=== PATIENT | male | born 1985 | race Caucasian/White ===

== ENCOUNTER 2020-01-31 10:20 | Inpatient (IN) ==
[2020-01-31 10:49] LABS: Basophils # 0.1 K/mcL (0.0-0.2); Basophils % 0.7 %; Eosinophils # 0.2 K/mcL (0.0-0.6); Eosinophils % 1.7 %; Estimated Average Glucose 126 mg/dl; Hematocrit 47.4 % (37.5-50.1); Hemoglobin 16.4 g/dL (12.9-16.9); Immature Granulocytes % 0.4 % (0-4); Lymphocytes # 2.2 K/mcL (0.6-4.6); Lymphocytes % 24.1 %; Mean Corpuscular HGB Conc 34.6 g/dL (31.6-35.5); Mean Corpuscular Hemoglobin 29.4 pg (28.0-33.3); Mean Corpuscular Volume 84.9 fL (83.0-100.0); Mean Platelet Volume 9.3 fL (9.4-12.4); Monocytes # 0.8 K/mcL (0.0-1.3); Monocytes % 8.5 %; Neutrophils # 5.9 K/mcL (1.6-8.9); Platelet Count 279 K/mcL (140-400); Red Blood Count 5.58 M/mcL (4.19-5.50); Red Cell Distribution Width 12.5 % (11.5-14.5); Segmented Neutrophils % 64.6 %; White Blood Count 9.2 K/mcL (4.3-11.1)
[2020-01-31 10:56] LABS: Bilirubin,Urine Negative (Negative); Blood,Urine Negative (Negative); Clarity,Urine Clear (Clear); Color,Urine Light-Yellow (Yellow); Glucose,Urine (UA) 150 mg/dL (Normal); Ketones,Urine 40 mg/dL (Negative); Leukocyte Esterase,Urine Negative (Negative); Mucus,Urine Few per lpf (None-Few); Nitrite,Urine Negative (Negative); Protein,Urine Trace mg/dL (Neg-Trace); RBC,Urine 0-3 per hpf (0-3); Specific Gravity,Urine 1.028 (1.010-1.025); Urobilinogen,Urine Normal (Normal); WBC,Urine 0-3 per hpf (0-3)
[2020-01-31 11:08] LABS: Acetaminophen < 10 mcg/mL (10-20); BUN/Creatinine Ratio 12 (6-26); Blood Urea Nitrogen 13 mg/dL (6-20); Calcium 9.2 mg/dL (8.6-10.3); Carbon Dioxide 28 mEq/L (23-29); Chloride 102 mEq/L (98-107); Chol/HDL Ratio 5.4 (0-4.9); Cholesterol 212 mg/dL (< 200); Ethanol < 10 mg/dL (Less than 10); Glucose 104 mg/dL (70-105); HDL Cholesterol 39 mg/dL (40-59); LDL Cholesterol,Calculated 148 mg/dL (< 100); Osmolality,Calculated 284 (280-300); Potassium 3.6 mEq/L (3.5-5.1); Salicylate < 2.5 mg/dL (15.0-30.0); Sodium 137 mEq/L (136-145); Triglycerides 124 mg/dL (< 150); eGFR For African Americans > 60 (> 60); eGFR For Non-African Americans > 60 (> 60)
[2020-01-31 11:21] LABS: Amphetamine Screen,Urine Negative ng/mL (Cutoff=1000); Barbiturate Screen,Urine Negative ng/mL (Cutoff=200); Benzodiazepines Screen,Urine Positive ng/mL (Cutoff=200); Cannabinoid Screen,Urine Positive ng/mL (Cutoff = 50); Cocaine Screen,Urine Negative ng/mL (Cutoff= 300); Opiate Screen,Urine Negative ng/mL (Cutoff=300); Phencyclidine Screen,Urine Negative ng/mL (Cutoff=25)
[2020-01-31] MEDS ORDERED: *HR* LORazepam 2 MG/ML VIAL IM PRN (12:22)
[2020-01-31] MEDS ORDERED: *HR* LORazepam 1 MG TABLET PO PRN (12:22)
[2020-01-31] MEDS ORDERED: haloperidoL 5 MG TABLET PO PRN (12:22)
[2020-01-31] MEDS ORDERED: Haloperidol Lactate 5 MG/ML VIAL IM PRN (12:22)
[2020-01-31] MEDS ORDERED: MOM Conc 10 ML UD.LIQ PO PRN (12:22)
[2020-01-31] MEDS ORDERED: Mag Hydrox/Al Hydrox/Simeth 30 ML UDC PO PRN (12:22)
[2020-01-31] MEDS ORDERED: Acetaminophen 325 MG TABLET PO PRN (12:22)
[2020-01-31 12:37] LABS: Thyroid Stimulating Hormone 1.767 mcIU/mL (0.340-5.600)
[2020-01-31] MEDS: Nicotine 14 MG PATCH.TD24 TD SCH (14:50)
[2020-02-01] MEDS: Nicotine 14 MG PATCH.TD24 TD SCH (09:06)
[2020-02-01] MEDS ORDERED: Loratadine 10 MG TABLET PO PRN (13:49)
[2020-02-01] MEDS: Ibuprofen 800 MG TABLET PO PRN (21:13)
[2020-02-01] MEDS: hydrOXYzine pamoate 25 MG CAPSULE PO PRN (21:13)
[2020-02-01] MEDS: traZODone 50 MG TABLET PO PRN (21:13)
[2020-02-02] MEDS: Nicotine 14 MG PATCH.TD24 TD SCH (09:07)
[2020-02-02] MEDS: hydrOXYzine pamoate 25 MG CAPSULE PO PRN (20:55)
[2020-02-02] MEDS: traZODone 50 MG TABLET PO PRN (20:55)
[2020-02-02] MEDS: Ibuprofen 800 MG TABLET PO PRN (20:55)
[2020-02-03] MEDS: Nicotine 14 MG PATCH.TD24 TD SCH (08:58)
[2020-02-03] MEDS: hydrOXYzine pamoate 25 MG CAPSULE PO PRN (21:17)
[2020-02-03] MEDS: Ibuprofen 800 MG TABLET PO PRN (21:17)
[2020-02-03] MEDS: traZODone 50 MG TABLET PO PRN (21:17)
[2020-02-04 08:35] VITALS: BP 131/89
[2020-02-04] MEDS: Nicotine 14 MG PATCH.TD24 TD SCH (08:49)
== END 2020-02-04 12:05 | disposition home or self-care (01) | DRG 918 ==
LOC: EMEROOARM 10:20 → 1ANU 12:19
PROVIDERS: ADMIT Psychiatry & Neurology Psychiatry; ATTEND Psychiatry & Neurology Psychiatry